=== PATIENT | female | born 1980 | race Caucasian/White ===

== ENCOUNTER → 2017-05-10 | Emergency (ER) | payer OTHER ==
[~2017-05-10] VITALS: Ht 160 cm; Wt 63.5 kg
[~2017-05-10] MED LIST: ALBUTEROL2.5 MG/3 M IH; ATARAX25 MG PO; CIPRO500 MG PO; DICLOFENAC POTA50 MG PO; MEDROLPACK PO; NORFLEX100MG PO; PEPCID40 MG PO; ZITHROMAX500 MG PO; ZYNCOF 20-400120 ML PO; ZYRTEC10 M3 PO; ZYRTEC10 MG PO
== END | disposition home or self-care (01) ==
LOC: ER 23:33
DX: M54.5 Low back pain (principal)

== ENCOUNTER 2017-06-09 22:06 | Emergency (ER) | payer OTHER ==
[~2017-06-09] VITALS: Ht 160 cm; Wt 64.4 kg
[2017-06-10] MEDS ORDERED: ZITHROMAX500 MG PO (00:28)
[2017-06-10] MEDS ORDERED: ORASEP SPRAY30 ML MM (00:28)
== END 2017-06-10 00:57 | disposition home or self-care (01) ==
LOC: ER 22:06
DX: J02.8 Acute pharyngitis due to other specified organisms (principal)

== ENCOUNTER → 2017-07-13 | Emergency (ER) | payer OTHER ==
[~2017-07-13] VITALS: Ht 160 cm; Wt 65.8 kg
[~2017-07-13] MED LIST changes: +NEURONTIN300 MG PO; +ORASEP SPRAY30 ML MM
== END | disposition home or self-care (01) ==
LOC: ER 22:26
DX: M54.42 Lumbago with sciatica, left side (principal)

== ENCOUNTER 2017-07-30 22:09 | Emergency (ER) | payer OTHER ==
[~2017-07-30] VITALS: Ht 160 cm; Wt 67.1 kg
[~2017-07-30 22:09] MED LIST changes: +KETO10TA2 PO
== END 2017-07-31 01:12 | disposition home or self-care (01) ==
LOC: ER 22:09
DX: M54.2 Cervicalgia (principal)

== ENCOUNTER 2017-08-18 11:34 | Emergency (ER) | payer OTHER ==
[~2017-08-18] VITALS: Ht 160 cm; Wt 67.1 kg
[2017-08-18] MEDS ORDERED: ORPHENADRINE C100 MG PO (13:37)
[2017-08-18] MEDS ORDERED: KETO10TA2 PO (13:37)
[2017-08-18] MEDS ORDERED: CYCLOBENZAPRINE10 MG PO (13:37)
== END 2017-08-18 13:57 | disposition home or self-care (01) ==
LOC: ER 11:34
DX: M54.5 Low back pain (principal)

== ENCOUNTER → 2017-09-14 | Emergency (ER) | payer OTHER ==
[~2017-09-14] VITALS: Ht 160 cm; Wt 67.1 kg
[~2017-09-14] MED LIST changes: +CYCLOBENZAPRINE10 MG PO; +KETOROLAC TROME10 MG PO; +ORPHENADRINE C100 MG PO; +SKELAXIN800 MG PO
== END | disposition home or self-care (01) ==
LOC: ER 23:24
DX: M54.5 Low back pain (principal)

== ENCOUNTER → 2017-09-17 | Emergency (ER) | payer OTHER ==
[~2017-09-17] VITALS: Ht 160 cm; Wt 68.0 kg
[~2017-09-17] MED LIST changes: +DICLOFENAC SODI50 MG PO
== END | disposition home or self-care (01) ==
LOC: ER 23:23
DX: M54.5 Low back pain (principal)

== ENCOUNTER → 2017-10-18 | Emergency (ER) | payer OTHER ==
[~2017-10-18] VITALS: Ht 160 cm; Wt 68.0 kg
[~2017-10-18] MED LIST changes: +THERALITH XR T1 EACH
== END | disposition home or self-care (01) ==
LOC: ER 23:51
DX: M54.5 Low back pain (principal)

== ENCOUNTER 2017-10-22 21:39 | Emergency (ER) | payer OTHER ==
[~2017-10-22] VITALS: Ht 157.5 cm; Wt 70.3 kg
== END 2017-10-23 00:36 | disposition home or self-care (01) ==
LOC: ER 21:39
DX: M54.17 Radiculopathy, lumbosacral region (principal)

== ENCOUNTER 2017-11-06 06:06 | Emergency (ER) | payer OTHER ==
[~2017-11-06] VITALS: Ht 160 cm; Wt 67.1 kg
[2017-11-06] MEDS ORDERED: ZANTAC150 MG PO (09:41)
[2017-11-06] MEDS ORDERED: INTESTINEX680 M1 PO (09:41)
== END 2017-11-06 10:07 | disposition home or self-care (01) ==
LOC: ER 06:06
DX: K52.9 Noninfective gastroenteritis and colitis, unspecified (principal)

== ENCOUNTER 2017-12-13 19:32 | Emergency (ER) | payer OTHER ==
[~2017-12-13] VITALS: Ht 160 cm; Wt 68.0 kg
[~2017-12-13 19:32] MED LIST changes: +INTESTINEX680 M1 PO; +ZANTAC150 MG PO
== END 2017-12-13 20:21 | disposition home or self-care (01) ==
LOC: ER 19:32
DX: S29.012A Strain of muscle and tendon of back wall of thorax, initial encounter (principal); V49.9XXA Car occupant (driver) (passenger) injured in unspecified traffic accident, initial encounter; Y93.89 Activity, other specified; Y92.488 Other paved roadways as the place of occurrence of the external cause; Y99.8 Other external cause status

== ENCOUNTER 2017-12-22 18:16 | Emergency (ER) | payer OTHER ==
[~2017-12-22] VITALS: Ht 160 cm; Wt 63.5 kg
== END 2017-12-22 21:13 | disposition home or self-care (01) ==
LOC: ER 18:16
DX: S13.4XXA Sprain of ligaments of cervical spine, initial encounter (principal); V49.9XXA Car occupant (driver) (passenger) injured in unspecified traffic accident, initial encounter; Y93.89 Activity, other specified; Y92.488 Other paved roadways as the place of occurrence of the external cause; Y99.8 Other external cause status

== ENCOUNTER 2018-01-05 05:48 | Emergency (ER) | payer OTHER ==
[~2018-01-05] VITALS: Ht 160 cm; Wt 63.5 kg
[2018-01-05] MEDS ORDERED: SKELAXIN800 MG PO (07:45)
[2018-01-05] MEDS ORDERED: IBUPROFEN800 MG PO (07:45)
== END 2018-01-05 07:55 | disposition home or self-care (01) ==
LOC: ER 05:48
DX: M62.830 Muscle spasm of back (principal)

== ENCOUNTER → 2018-05-14 | Emergency (ER) | payer OTHER ==
[~2018-05-14] VITALS: Ht 160 cm; Wt 68.0 kg
[~2018-05-14] MED LIST changes: +IBUPROFEN800 MG PO
== END | disposition left against medical advice (07) ==
LOC: ER 14:14
DX: J31.0 Chronic rhinitis (principal); R42 Dizziness and giddiness

== ENCOUNTER 2018-05-25 15:00 | Emergency (ER) | payer OTHER ==
[~2018-05-25] VITALS: Ht 160 cm; Wt 76.2 kg
== END 2018-05-25 15:58 | disposition home or self-care (01) ==
LOC: ER 15:00
DX: M54.89 Other dorsalgia (principal)

== ENCOUNTER 2018-06-03 19:23 | Emergency (ER) | payer OTHER ==
[~2018-06-03] VITALS: Ht 160 cm; Wt 73.5 kg
== END 2018-06-03 21:49 | disposition home or self-care (01) ==
LOC: ER 19:23
DX: M54.16 Radiculopathy, lumbar region (principal); M54.5 Low back pain

== ENCOUNTER 2018-06-26 00:02 | Emergency (ER) | payer OTHER ==
[~2018-06-26] VITALS: Ht 160 cm; Wt 72.6 kg
[2018-06-26] MEDS ORDERED: CEFUROXIME500 MG PO (04:51)
[2018-06-26] MEDS ORDERED: MUPIROCIN22 GM TOP (04:51)
== END 2018-06-26 05:19 | disposition home or self-care (01) ==
LOC: ER 00:02
DX: L30.8 Other specified dermatitis (principal)

== ENCOUNTER 2018-10-28 20:10 | Emergency (ER) | payer OTHER ==
[~2018-10-28] VITALS: Ht 160 cm; Wt 74.4 kg
[~2018-10-28 20:10] MED LIST changes: +CEFUROXIME500 MG PO; +MUPIROCIN22 GM TOP
== END 2018-10-28 22:00 | disposition home or self-care (01) ==
LOC: ER 20:10
DX: M54.5 Low back pain (principal)

== ENCOUNTER → 2018-11-11 | Emergency (ER) | payer OTHER ==
[~2018-11-11] VITALS: Ht 160 cm; Wt 72.6 kg
== END | disposition home or self-care (01) ==
LOC: ER 18:20
DX: R06.02 Shortness of breath (principal)

== ENCOUNTER 2019-02-16 18:12 | Emergency (ER) | payer OTHER ==
[~2019-02-16] VITALS: Ht 160 cm; Wt 75.7 kg
== END 2019-02-16 20:44 | disposition home or self-care (01) ==
LOC: ER 18:12
DX: M54.89 Other dorsalgia (principal)

== ENCOUNTER 2019-03-07 17:31 | Emergency (ER) | payer OTHER ==
[~2019-03-07] VITALS: Ht 160 cm; Wt 75.7 kg
== END 2019-03-07 20:59 | disposition home or self-care (01) ==
LOC: ER 17:31
DX: B33.8 Other specified viral diseases (principal); B96.0 Mycoplasma pneumoniae [M. pneumoniae] as the cause of diseases classified elsewhere

== ENCOUNTER 2020-09-23 16:42 | Emergency (ER) | payer OTHER ==
[~2020-09-23] VITALS: Ht 167.6 cm; Wt 68.0 kg
[2020-09-23] MEDS ORDERED: NORFLEX100MG PO (18:05)
== END 2020-09-23 19:05 | disposition home or self-care (01) ==
LOC: ER 16:42
DX: M62.830 Muscle spasm of back (principal)

== ENCOUNTER 2021-01-12 11:53 | Emergency (ER) | payer OTHER ==
[~2021-01-12] VITALS: Ht 162.6 cm; Wt 74.4 kg
== END 2021-01-12 14:55 ==
LOC: ER 11:53
DX: S05.01XA Injury of conjunctiva and corneal abrasion without foreign body, right eye, initial encounter (principal); X58.XXXA Exposure to other specified factors, initial encounter; Y93.89 Activity, other specified; Y92.89 Other specified places as the place of occurrence of the external cause; Y99.8 Other external cause status

== ENCOUNTER 2021-09-07 00:35 | Emergency (ER) | payer OTHER ==
[~2021-09-07] VITALS: Ht 160 cm; Wt 73.9 kg
[2021-09-07] MEDS ORDERED: NORFLEX100MG PO (01:24)
[2021-09-07] MEDS ORDERED: KETO10TA2 PO (01:24)
== END 2021-09-07 01:40 | disposition home or self-care (01) ==
LOC: ER 00:35
DX: M62.830 Muscle spasm of back (principal); M54.59 Other low back pain

== ENCOUNTER 2021-12-17 03:27 | Emergency (ER) | payer OTHER ==
[~2021-12-17] VITALS: Ht 167.6 cm; Wt 70.3 kg
[2021-12-17] MEDS ORDERED: BUDESONIDE0.5 MG/2 M IH (06:12)
[2021-12-17] MEDS ORDERED: IPRAT-ALBUT 0.5-3 ML IH (06:12)
[2021-12-17] MEDS ORDERED: PROAIR HFA8.5 GM IH (06:12)
== END 2021-12-17 06:32 ==
LOC: ER 03:27
DX: J45.909 Unspecified asthma, uncomplicated (principal)

== ENCOUNTER 2022-03-14 21:17 | Emergency (ER) | payer OTHER ==
[~2022-03-14] VITALS: Ht 160 cm; Wt 74.4 kg
[~2022-03-14 21:17] MED LIST changes: +BUDESONIDE0.5 MG/2 M IH; +IPRAT-ALBUT 0.5-3 ML IH; +PROAIR HFA8.5 GM IH
== END 2022-03-14 22:54 | disposition home or self-care (01) ==
LOC: ER 21:17
DX: M54.31 Sciatica, right side (principal)

== ENCOUNTER 2022-06-09 13:29 | Emergency (ER) | payer OTHER ==
[~2022-06-09] VITALS: Ht 162.6 cm; Wt 72.6 kg
== END 2022-06-09 18:43 | disposition home or self-care (01) ==
LOC: ER 13:29
DX: M54.31 Sciatica, right side (principal)

== ENCOUNTER 2022-08-10 17:18 | Emergency (ER) | payer OTHER ==
[~2022-08-10] VITALS: Ht 162.6 cm; Wt 72.6 kg
== END 2022-08-10 18:52 | disposition home or self-care (01) ==
LOC: ER 17:18
DX: M54.31 Sciatica, right side (principal)

== ENCOUNTER → 2022-09-03 | Emergency (ER) | payer OTHER ==
[~2022-09-03] VITALS: Ht 162.6 cm; Wt 73.9 kg
== END | disposition home or self-care (01) ==
LOC: ER 15:32
DX: M54.31 Sciatica, right side (principal)

== ENCOUNTER 2022-10-05 23:08 | Emergency (ER) | payer OTHER ==
[~2022-10-05] VITALS: Ht 160 cm; Wt 74.8 kg
== END 2022-10-06 03:35 | disposition home or self-care (01) ==
LOC: ER 23:08
DX: M62.830 Muscle spasm of back (principal)

== ENCOUNTER 2023-06-03 02:53 | Emergency (ER) | payer OTHER ==
[~2023-06-03] VITALS: Ht 162.6 cm; Wt 69.9 kg
[2023-06-03] MEDS ORDERED: NAPHAZOLINE HCL/PHENIRAMINE 20 DR/ML DROPS OP STA (03:48)
[2023-06-03] MEDS ORDERED: GENTAMICIN SULFATE 0.15 MG/DR DROPS 5ML OP STA (03:48)
[2023-06-03] MEDS ORDERED: CLEAR EYES COOL15 ML OP (03:57)
[2023-06-03] MEDS ORDERED: GENTAMICIN SULFA5 ML OP (03:57)
== END 2023-06-03 04:00 | disposition home or self-care (01) ==
LOC: ER 02:53
DX: H10.9 Unspecified conjunctivitis (principal)

== ENCOUNTER 2024-03-02 11:29 | Emergency (ER) | payer OTHER ==
[~2024-03-02] VITALS: Ht 162.6 cm; Wt 71.7 kg
[~2024-03-02 11:29] MED LIST changes: +CLEAR EYES COOL15 ML OP; +GENTAMICIN SULFA5 ML OP
[2024-03-02] MEDS ORDERED: KETOROLAC TROMETHAMINE 30 MG VIAL IM STA (13:24)
[2024-03-02] MEDS ORDERED: ORPHENADRINE CITRATE 30 MG/ML AMPUL IM STA (13:24)
== END 2024-03-02 14:48 | disposition home or self-care (01) ==
LOC: ER 11:31
DX: M54.50 Low back pain, unspecified (principal); M62.838 Other muscle spasm
CPT/HCPCS: 96372; 99282; J1885; J2360

== ENCOUNTER 2024-03-11 16:13 | Emergency (ER) | payer OTHER ==
[~2024-03-11] VITALS: Ht 162.6 cm; Wt 71.2 kg
[2024-03-11 17:14] VITALS: BP 106/69; O2SAT 100
[2024-03-11] MEDS ORDERED: KETOROLAC TROMETHAMINE 60 MG VIAL IM STA (19:10)
[2024-03-11] MEDS ORDERED: ORPHENADRINE CITRATE 30 MG/ML AMPUL IM STA (19:11)
== END 2024-03-11 20:05 | disposition home or self-care (01) ==
LOC: ER 16:15
DX: M62.830 Muscle spasm of back (principal)

== ENCOUNTER 2024-07-30 22:53 | Emergency (ER) | payer OTHER ==
[~2024-07-30] VITALS: Ht 162.6 cm; Wt 68.9 kg
[2024-07-30] MEDS ORDERED: ORPHENADRINE CITRATE 30 MG/ML AMPUL IM ONE (23:30)
[2024-07-30] MEDS ORDERED: KETOROLAC TROMETHAMINE 60 MG VIAL IM ONE ×2 (23:30→23:50)
[2024-07-30] MEDS ORDERED: ORPHENADRINE CITRATE 30 MG/ML AMPUL ONE (23:50)
== END 2024-07-31 00:17 | disposition home or self-care (01) ==
LOC: ER 23:27
DX: M54.9 Dorsalgia, unspecified (principal); M62.830 Muscle spasm of back

== ENCOUNTER 2024-08-22 23:36 | Emergency (ER) | payer OTHER ==
[~2024-08-22] VITALS: Ht 162.6 cm; Wt 68.9 kg
[2024-08-23] MEDS ORDERED: DEXAMETHASONE SODIUM PHOSPHATE 4 MG/ML VIAL IM STA (04:39)
[2024-08-23] MEDS ORDERED: ORPHENADRINE CITRATE 30 MG/ML AMPUL IM STA (04:39)
[2024-08-23] MEDS ORDERED: KETOROLAC TROMETHAMINE 60 MG VIAL IM STA (04:40)
[2024-08-23] MEDS ORDERED: KETOROLAC TROMETHAMINE 60 MG VIAL IM ONE (04:43)
[2024-08-23] MEDS ORDERED: ORPHENADRINE CITRATE 30 MG/ML AMPUL ONE (04:43)
[2024-08-23] MEDS ORDERED: DEXAMETHASONE SODIUM PHOSPHATE 4 MG/ML VIAL ONE (04:44)
== END 2024-08-23 04:52 | disposition home or self-care (01) ==
LOC: ER 23:40
DX: M54.50 Low back pain, unspecified (principal)

== ENCOUNTER 2024-11-29 11:25 | Emergency (ER) | payer OTHER ==
[~2024-11-29] VITALS: Ht 162.6 cm; Wt 65.3 kg
[2024-11-29] MEDS ORDERED: KETOROLAC TROMETHAMINE 30 MG VIAL IM ONE (13:30)
[2024-11-29] MEDS ORDERED: ORPHENADRINE CITRATE 30 MG/ML AMPUL IM ONE (13:30)
== END 2024-11-29 13:43 | disposition home or self-care (01) ==
LOC: ER 11:25
DX: M54.89 Other dorsalgia (principal)